=== PATIENT | female | born 2000 | race Two or more races ===

== ENCOUNTER 2020-02-07 16:26 | Emergency (ER) | payer MEDICAID ==
[~2020-02-07] VITALS: Ht 162.6 cm; Wt 59.0 kg
--- NOTE | 2020-02-07 16:55 | NUR ---
AAOX3, CAME TO ER C/O DIARRHEA X 4 DAYS, C/O RECTAL PAIN. RR IS EVEN AND UNLABORED WITH NAD NOTED. SKIN IS WARM AND DRY. AWAITING MD FOR EVAL.
[2020-02-07 18:00] LABS: OCCULT BLOOD STOOL NEGATIVE (NEGATIVE)
--- NOTE | 2020-02-07 18:08 | NUR ---
Patient discharged to home in stable condition. Written and verbal after care instructions given. Patient verbalizes understanding of instruction.
[2020-02-07 18:11] VITALS: BP 132/82
== END 2020-02-07 18:11 | disposition home or self-care (01) ==
LOC: ER 16:30
DX: K60.2 Anal fissure, unspecified (principal); R19.7 Diarrhea, unspecified; K62.89 Other specified diseases of anus and rectum; Z90.89 Acquired absence of other organs; Z88.0 Allergy status to penicillin
CPT/HCPCS: 82272-TC